=== PATIENT | female | born 1975 | race Caucasian/White ===

== ENCOUNTER 2023-07-19 13:33 | Emergency (ER) | payer MEDICAID ==
[~2023-07-19] VITALS: Ht 165.1 cm; Wt 68.5 kg
[2023-07-19] MEDS ORDERED: TDAP [DIPH/PERTUSSIS/TET] 0.5 ML VIAL IM ONE (15:22)
[2023-07-19] MEDS: TDAP [DIPH/PERTUSSIS/TET] 0.5 ML VIAL IM ONE (15:27)
[2023-07-19 15:31] VITALS: BP 121/81; TEMP 97.9; O2SAT 100
== END 2023-07-19 15:32 | disposition home or self-care (01) ==
LOC: EDBD 13:33 → ER 13:33
DX: S91.032A Puncture wound without foreign body, left ankle, initial encounter (principal); Z60.2 Problems related to living alone; W54.0XXA Bitten by dog, initial encounter; Y93.89 Activity, other specified; Y92.89 Other specified places as the place of occurrence of the external cause; Y99.8 Other external cause status
CPT/HCPCS: 90715